=== PATIENT | male | born 1975 ===

== ENCOUNTER 2022-09-12 04:37 | Inpatient (IN) ==
[2022-09-12] MEDS ORDERED: ONDANSETRON INJ 2 MG/ML 2 ML VIAL IV PRN (09:49)
[2022-09-12] MEDS ORDERED: LACTATED RINGER'S 500 ML IV ONE (09:49)
--- NOTE | 2022-09-12 09:55 | History & Physical Report ---
Date of Service September 12, 2022 Assessment & Plan (1) Acute diverticulitis: Plan: Sigmoid diverticulitis on CT a/p from [facility]. No micro or macroperforation. No abscess formation. SBO reactive/secondary to the sigmoid diverticulitis? Separate process? Repeat CBC, BMP here are stable. Plan - * NPO * IVF * IV antibiotics - rocephin 2mg daily, flagyl 500mg IV q8h * IV pepcid for GI prophylaxis * IV pain meds - morphine prn Will consult [facility], Dr Shauna Mckay, for additional recommendations. When acute diverticulitis has resolved will need outpatient colonoscopy in 6-8 weeks to exclude other processes (colon ca, IBD, etc). (2) SBO (small bowel obstruction): Plan: Odd presentation in light of the sigmoid diverticulitis. I had the films from [facility] downloaded in our PACs system and independently reviewed these images with our radiology department. The loops of small bowel that are dilated (distal small intestine) are adjacent to the area of diverticulitis. More than likely the SBO is reactive/secondary to the diverticulitis. Can't exclude that the SBO is simply a severe ileus due to #1 but less likely. Patient without any vomiting/nausea and is passing flatus. Thus, defer on NG tube for now. Appreciate GI consult & recommendations. NPO, IV fluids, etc. Consider repeat plain films in am if any clinical worsening or lack of improvement. Low threshold for general surgery consultation if any worsening. Of note - patient had SBO in 02/2022 at [facility]. He has never had any intra-abdominal surgery. Could he have smoldering IBD leading to the SBO in 02/2022 and the SBO here? Will need outpatient colonoscopy in 6-8 weeks. Terminal ileum can be looked at during the colonoscopy to exclude Crohn's, etc. Consider stool calprotectin to screen for IBD due to chronic loose stools. Will request the records from [facility] 02/2022 admission. (3) Rotator cuff syndrome of right shoulder: Plan: Patient had a shoulder injury about 2 weeks ago. He had outpatient x-rays of the right shoulder at that time and was told his films did not show fracture. He has impingement signs on exam today. Could have shoulder bursitis due to his trauma/fall. Could have tendonitis. Voltaren gel qid. Ice qid prn. (4) Elevated C-reactive protein (CRP): Plan: Likely 2nd to #1 Plan DVT proph - low risk, ambulatory, defer on chemical DVT prophylaxis updated at bedside care d/w Dr Mckay, [facility] Admission and Anticipated Discharge Date Admission Date: September 12, 2022 History of Present Illness Chief Complaint: abdominal pain Primary Care Provider: NO PCP Pleasant 46yo male with history of SBO requiring hospitalization in 02/2022 at [facility], "colitis" 4-5 years ago (only seen in ER at that time, did not require hospitalization), and several other episodes of LLQ abdominal pain over the last several years not requiring medical care presenting as a transfer from [facility] for SBO + sigmoid diverticulitis. Patient states his lower abdominal pain (LLQ>suprapubic) started about 2 days ago. During that time period he has had little PO intake. +subjective fevers/chills. No vomiting, no nausea. Still passing flatus. No stool in the last 24 hours. He reports chronic loose stools without blood or mucous. No recent weight loss. Prior to the abdominal pain starting 2 days ago he had normal appetite. He has never had EGD or colonoscopy He remembers being told in [place] in 02/2022 that Crohn's may have caused his SBO? He does not recall being told he had colitis or diverticulitis during that hospitalization. He never had GI or surgical follow-up. There is a family history of colonoscopy in his mother in her 60s; from such. No IBD history in either side of his family. During my admission assessment he is uncomfortable due to LLQ abdominal pain. Allergies Allergy/AdvReac Type Severity Reaction Status Date / Time No Known Allergies Allergy Unverified 09/12/22 08:51 Home Medications Medication Instructions Recorded Confirmed Type No Known Home Medications 09/12/22 09/12/22 History Past Med/Surg History Medical History History of colitis SBO (small bowel obstruction) 02/2022 - [facility] Surgical History No pertinent past surgical history Family History Mother Colorectal cancer in her 60s Thyroid disease Sister , age 32 Leukemia Denies family history of Inflammatory bowel disease Social History Smoking Status: Former smoker Second Hand Exposure: No; Do You Dip or Chew Tobacco: No; Tobacco Cessation Education Requested by Patient: No Hx Alcohol Use: No Hx Substance Use: No Preferred Language: Uzbek Communication Ability: Effective Aviation Medicine Specialist Required: No Beliefs That Will Affect Care: None marital status: Current Living Situation: Spouse Current Living Situation Comment: lives with + 5 children current occupational status: employed 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) How many Children do You have: 5 Other Information That Helps Us Care for You: No Feels Safe at Home: Yes Safety Concerns: Feels Safe At This Time Assistive Devices: None Review of Systems Review of Systems: gen - fevers/chills (subjective) - yesterday; no recent weight loss; +loss of appetite last few days eyes - no changes in vision HENT - no ear pain, sore throat, URI symptoms CV - no chest pain pulm - no dyspnea or cough GI - no nausea/vomiting/blood per rectum/melena; +LLQ abd pain; chronic loose stools - no dysuria musculo - right shoulder pain s/p fall 2 weeks ago; had x-rays and was told they were negative for fracture skin - no rash endo - no diabetes neuro - headache x 2 days Physical Exam Physical Exam: gen - NAD, awake, alert, pleasant eyes - PERRL HENT - nose clear, mouth with dry MM, no lesions neck - no JVD, no lymph nodes CV - RRR, s1 s2, no murmur lungs - CTA b/l but BS decreased bases abd - tender upper quadrants but worst in the LLQ; no peritoneal signs; BS+; mi nimally distended rectal - deferred musculo - right shoulder with +impingement signs with external and internal rotation along with extension; +bursal pain to palpation; no deformity or atrophy of muscles ext - no edema, pulses 2+ b/l skin - no rash neuro - DTRs 2+ b/l upper/lower exts; strength 5/5 x 4 exts but mild weakness noted R shoulder due to pain psych - a/o x 3 Results & Data Results & Data Vital Signs (Past 12 Hours) Vital Signs Temp Pulse Resp BP Pulse Ox O2 Del Method 09/12/22 08:18 37.0 C 74 18 97/61 L 99 Room Air Laboratory Results Laboratory Results - last 24 hr 09/12/22 09/12/22 10:02 10:02 WBC 11.49 H RBC 4.22 L Hgb 13.0 L Hct 37.8 L MCV 89.6 MCH 30.8 MCHC 34.4 RDW Std Deviation 42.5 RDW Coeff of Tara 13.0 Plt Count 181 MPV 9.1 L Sodium 136 Potassium 4.3 Chloride 103 Carbon Dioxide 26 Anion Gap 7 BUN 11 Creatinine 0.85 Est Cr Clr Drug Dosing 114.5 Est GFR ( Amer) 122.8 Est GFR (Non-Af Amer) 106.0 BUN/Creatinine Ratio 12.9 Glucose 89 Calcium 8.3 L Magnesium 1.9 Labs at [facility] prior to transfer - WBC 12,000 Cr 0.9 CRP 30.9 ESR 56 Lipase 13 u/a - 2+ blood, 2+ ketones Diagnostic Findings Chest/Abdomen X-ray 09/12/22 09:49 CHEST AND ABDOMEN 2 VIEWS HISTORY: ? Small bowel obstruction on outside CT scan ([facility]) COMPARISON: Outside hospital abdomen and pelvis CT 09/11/2022. FINDINGS: No pneumothorax. No pleural effusions. The cardiac silhouette is normal in size. The right lung is clear. Left basilar linear densities favor subsegmental atelectasis. No pneumoperitoneum. No pneumatosis. Dilated gas- filled loops of small bowel are again seen within the abdomen most pronounced within the left upper quadrant. These measure up to 4.7 cm in diameter. This is consistent with the small bowel obstruction seen on the prior CT examination. There is gas seen within nondistended colon and rectum. Therefore, this could represent a partial small bowel obstruction at this time. Calcified granulomas again noted within the spleen. IMPRESSION: Dilated gas-filled loops of small bowel are again seen within the abdomen most pronounced within the left upper quadrant. These measure up to 4.7 cm in diameter. This is consistent with the small bowel obstruction seen on the prior CT examination. There is gas seen within nondistended colon and rectum. Therefore, this could represent a partial small bowel obstruction at this time. ACT 112: Negative or not required by law. Electronically signed by: Curt Benitez M.D. 09/12/2022 10:52 AM ----- CT abd/pelvis - performed at [facility] - 1. b/l simple renal cysts 2. GI tract - diverticulosis with mild inflammatory changes in the sigmoid colon compatible with diverticulitis. Short segment of dilated small bowel loops in the left hemiabdomen with transition point in the region of the sigmoid inflammation. 3. No free fluid or free air. Code Status & VTE Plan Code Status full code PG Care Time/CCT Total # of Minutes Spent Total Time Spent with Patient: Total time spent is greater than 50% in coordination of care (as documented) at patient's floor/unit and/or counseling patient: Coding Level of Care Code 09524 INT INP/OBS CARE 2MIN Diagnoses Acute diverticulitis K57.92 SBO (small bowel obstruction) K56.609 Rotator cuff syndrome of right shoulder M75.101 Elevated C-reactive protein (CRP) R79.82
[2022-09-12 10:32] LABS: Hematocrit (blood only) 37.8 % (42.0-52.0); Mean Corpuscular Hemoglobin 30.8 pg (25.0-34.0); Mean Corpuscular Hgb Conc 34.4 g/dL (32.0-36.0); Mean Corpuscular Volume 89.6 fL (80.0-100.0); Mean Platelet Volume 9.1 fL (9.4-12.4); Platelet Count 181 K/uL (130-400); RDW Standard Deviation 42.5 fL (36.4-46.3); Red Blood Count 4.22 M/uL (4.70-6.10); White Blood Count 11.49 K/ul (4.8-10.8)
[2022-09-12] MEDS: MoRPHine SULFATE 2 MG/ML CARP IV PRN ×2 (10:48→17:18)
[2022-09-12 10:51] LABS: BUN Creatinine Ratio 12.9 (10-20); Calcium 8.3 mg/dl (8.6-10.3); Creatinine Clr Calc Pharmacy 114.5 ml/min; Est GFR (African American) 122.8 ml/min; Magnesium 1.9 mg/dl (1.7-2.4); Potassium 4.3 mmol/L (3.5-5.1)
[2022-09-12] MEDS: FAMOTIDINE 20 MG in SYRINGE 3 ML IV SCH ×2 (10:52→20:32)
--- NOTE | 2022-09-12 10:53 | XRay Report ---
CHEST AND ABDOMEN 2 VIEWS HISTORY: ? Small bowel obstruction on outside CT scan ([facility]) COMPARISON: Outside hospital abdomen and pelvis CT 09/11/2022. FINDINGS: No pneumothorax. No pleural effusions. The cardiac silhouette is normal in size. The right lung is clear. Left basilar linear densities favor subsegmental atelectasis. No pneumoperitoneum. No pneumatosis. Dilated gas-filled loops of small bowel are again seen within the abdomen most pronounce d within the left upper quadrant. These measure up to 4.7 cm in diameter. This is consistent with the small bowel obstruction seen on the prior CT examination. There is gas seen within nondistended colo n and rectum. Therefore, this could represent a partial small bowel obstruction at this time. Calcifi ed granulomas again noted within the spleen. IMPRESSION: Dilated gas-filled loops of small bowel are again seen within the abdomen most pronounced within the left upper quadrant. These measure up to 4.7 cm in diameter. This is consistent with the small bowel obstruction seen on the prior CT examination. There is gas seen within nondistended colon and rectum. Therefore, this could represent a partial small bowel obstruction at this time. ACT 112: Negative or not required by law. Electronically signed by: Curt Benitez M.D. 09/12/2022 10:52 AM
[2022-09-12] MEDS: D5NSS + 20MEQ KCL 20 MEQ/1,000 ML BAG IV SCH ×2 (11:05→18:13)
--- NOTE | 2022-09-12 11:08 | Gastrointestinal Consultation ---
Date of Consultation September 12, 2022 Assessment & Plan (1) Acute diverticulitis: He has acute diverticulitis and should be treated as such with IV antibiotics. I am unclear why he would have a small bowel obstruction. I guess it is possible he has Crohn's but I prefer not to label him with two different issues. He does need evaluation after he gets over his diverticulitis with colonoscopy. As an outpatient small bowel imaging could be done as well. When colonoscopy is done inspection of the terminal ileum could be performed. History of Present Illness Reason for Consultation: diverticulitis Attending Physician: Mann Du MD History of Present Illness 46 year old man with two days of lower abdominal pain with fever coming into the picture yesterday. He was admitted with CT that suggests acute diverticulitis. He says he has had episodes like this in the past that he has self treated at home with "infection reducers". He has been in the hospital before for GI issues and told he had "colitis". On CT on this admission there is suggestion of small bowel obstruction that could be reactive to the inflammation in his colon. He says a week ago he was feeling normal. His bowel movements are chronically loose but he never sees blood in his stool. He has not been losing weight. he has not ever seen a stream control officer. Allergies Allergy/AdvReac Type Severity Reaction Status Date / Time No Known Allergies Allergy Unverified 09/12/22 08:51 Home Medications Medication Instructions Recorded Confirmed Type No Known Home Medications 09/12/22 09/12/22 History Patient History Medical History History of colitis SBO (small bowel obstruction) 02/2022 - [facility] Surgical History No pertinent past surgical history Family History Mother Colorectal cancer in her 60s Thyroid disease Sister , age 32 Leukemia Denies family history of Inflammatory bowel disease Social History Smoking Status: Former smoker Second Hand Exposure: No; Do You Dip or Chew Tobacco: No; Tobacco Cessation Education Requested by Patient: No Hx Alcohol Use: No Hx Substance Use: No Preferred Language: Citizen Of [place] Communication Ability: Effective Head Strength And Conditioning Coach Required: No Beliefs That Will Affect Care: None marital status: Current Living Situation: Spouse Current Living Situation Comment: lives with + 5 children current occupational status: employed 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) How many Children do You have: 5 Other Information That Helps Us Care for You: No Feels Safe at Home: Yes Safety Concerns: Feels Safe At This Time Assistive Devices: None Review of Systems Review of Systems: All systems reviewed & are unremarkable except as noted in HPI & below Physical Exam Constitutional: WD/WN, vitals as above no acute distress Eyes: PERRL, conjunctivae normal, anicteric sclerae ENMT: external ear and nose normal, oropharynx normal Neck: trachea midline, no thyromegaly Respiratory: normal respiratory effort, lungs clear to auscultation Cardiovascular: RRR, no murmur, no edema Gastrointestinal (Abdomen): Inspection/Auscultation: abdomen normal to inspection Percussion/Palpation: + abdomen tender (right and left lower abdomen) and abdomen soft; no hepatosplenomegaly Musculoskeletal: Extremities: no cyanosis and no clubbing Skin: no rashes, warm and dry Neurologic: PERRL, EOMI, accommodation nl, no face palsy, no dysarthria Psychiatric: Orientation: alert and oriented x 3 Results & Data Vital Signs (Past 12 Hours) Vital Signs Temp Pulse Resp BP Pulse Ox O2 Del Method 09/12/22 08:18 37.0 C 74 18 97/61 L 99 Room Air Laboratory Results 09/12/22 09/12/22 Range/Units 10:02 10:02 WBC 11.49 H (4.8-10.8) K/ul RBC 4.22 L (4.70-6.10) M/uL Hgb 13.0 L (14.0-18.0) g/dl Hct 37.8 L (42.0-52.0) % MCV 89.6 (80.0-100.0) fL MCH 30.8 (25.0-34.0) pg MCHC 34.4 (32.0-36.0) g/dL RDW Std Deviation 42.5 (36.4-46.3) fL RDW Coeff of Tara 13.0 (11.5-14.5) % Plt Count 181 (130-400) K/uL MPV 9.1 L (9.4-12.4) fL Sodium 136 (136-145) mmol/L Potassium 4.3 (3.5-5.1) mmol/L Chloride 103 (98-107) mmol/L Carbon Dioxide 26 (21-32) mmol/L Anion Gap 7 (3-11) BUN 11 (6-23) mg/dl Creatinine 0.85 (0.6-1.4) mg/dl Est Cr Clr Drug Dosing 114.5 ml/min Est GFR ( Amer) 122.8 ml/min Est GFR (Non-Af Amer) 106.0 ml/min BUN/Creatinine Ratio 12.9 (10-20) Glucose 89 (70-99(Fasting)) mg/dl Calcium 8.3 L (8.6-10.3) mg/dl Magnesium 1.9 (1.7-2.4) mg/dl Diagnostic Findings Chest/Abdomen X-ray 09/12/22 09:49 CHEST AND ABDOMEN 2 VIEWS HISTORY: ? Small bowel obstruction on outside CT scan ([facility]) COMPARISON: Outside hospital abdomen and pelvis CT 09/11/2022. FINDINGS: No pneumothorax. No pleural effusions. The cardiac silhouette is normal in size. The right lung is clear. Left basilar linear densities favor subsegmental atelectasis. No pneumoperitoneum. No pneumatosis. Dilated gas- filled loops of small bowel are again seen within the abdomen most pronounced within the left upper quadrant. These measure up to 4.7 cm in diameter. This is consistent with the small bowel obstruction seen on the prior CT examination. There is gas seen within nondistended colon and rectum. Therefore, this could represent a partial small bowel obstruction at this time. Calcified granulomas again noted within the spleen. IMPRESSION: Dilated gas-filled loops of small bowel are again seen within the abdomen most pronounced within the left upper quadrant. These measure up to 4.7 cm in diameter. This is consistent with the small bowel obstruction seen on the prior CT examination. There is gas seen within nondistended colon and rectum. Therefore, this could represent a partial small bowel obstruction at this time. ACT 112: Negative or not required by law. Electronically signed by: Curt Benitez M.D. 09/12/2022 10:52 AM
[2022-09-12] MEDS: cefTRIAXone SODIUM 2,000 MG in DEXTROSE 5% 50 ML IV SCH (11:11)
[2022-09-12] MEDS: metroNIDAZOLE 500 MG/100 ML BAG IV SCH ×2 (11:52→18:13)
[2022-09-12] MEDS ORDERED: MoRPHine SULFATE 2 MG/ML CARP IV PRN (17:36)
[2022-09-12] MEDS: DICLOFENAC SOD 1% GEL 100 GM TUBE EXT SCH (20:32)
[2022-09-13] MEDS: D5NSS + 20MEQ KCL 20 MEQ/1,000 ML BAG IV SCH ×3 (02:25→19:58)
[2022-09-13] MEDS: metroNIDAZOLE 500 MG/100 ML BAG IV SCH ×3 (02:26→18:34)
[2022-09-13 06:31] LABS: Basophils # (auto) 0.02 K/uL (0-0.2); Basophils % (auto) 0.2 %; Eosinophils # (auto) 0.11 K/uL (0-0.50); Eosinophils % (auto) 1.2 %; Hematocrit (blood only) 36.4 % (42.0-52.0); Hemoglobin 12.5 g/dl (14.0-18.0); Immature Granulocytes # (auto) 0.03 K/uL (0.01-0.20); Immature Granulocytes % (auto) 0.3 %; Lymphocytes # (auto) 1.46 K/uL (1.2-3.4); Lymphocytes % (auto) 16.3 %; Mean Corpuscular Hemoglobin 30.6 pg (25.0-34.0); Mean Corpuscular Hgb Conc 34.3 g/dL (32.0-36.0); Mean Corpuscular Volume 89.2 fL (80.0-100.0); Mean Platelet Volume 9.6 fL (9.4-12.4); Monocytes # (auto) 0.54 K/uL (0.11-0.59); Neutrophils # (auto) 6.79 K/uL (1.40-6.50); Platelet Count 201 K/uL (130-400); RDW Coefficient of Variation 13.1 % (11.5-14.5); RDW Standard Deviation 42.6 fL (36.4-46.3); Red Blood Count 4.08 M/uL (4.70-6.10); White Blood Count 8.95 K/ul (4.8-10.8)
[2022-09-13 06:43] LABS: BUN Creatinine Ratio 11.3 (10-20); Calcium 8.2 mg/dl (8.6-10.3); Creatinine Clr Calc Pharmacy 137.1 ml/min; Est GFR (African American) 132.3 ml/min; Est GFR (Non-African American) 114.1 ml/min; Potassium 4.1 mmol/L (3.5-5.1)
--- NOTE | 2022-09-13 06:54 | Gastroenterology Progress Note ---
Date of Service September 13, 2022 Assessment & Plan (1) Acute diverticulitis: Plan: Seems to be improving. Would continue antibiotics and perhaps repeat abdominal films tomorrow. Hopefully this SBO is related to his acute inflammation Admission and Anticipated Discharge Date Admission Date: September 12, 2022 Subjective Feeling better but not back to normal. Does not feel bloated or nauseated Physical Exam Physical Exam: He looks well Results & Data Vital Signs (Past 12 Hours) Vital Signs Temp Pulse Pulse Resp BP Pulse Ox O2 Del Method 09/13/22 04:11 36.9 C 75 18 102/67 95 Room Air 09/12/22 22:58 78 09/12/22 22:34 36.9 C 74 18 104/69 94 Room Air 09/12/22 20:44 36.9 C 79 18 94/55 L 94 Room Air
[2022-09-13] MEDS: cefTRIAXone SODIUM 2,000 MG in DEXTROSE 5% 50 ML IV SCH (09:21)
[2022-09-13] MEDS: FAMOTIDINE 20 MG in SYRINGE 3 ML IV SCH ×2 (09:21→19:59)
[2022-09-13] MEDS: DICLOFENAC SOD 1% GEL 100 GM TUBE EXT SCH ×4 (09:21→19:59)
--- NOTE | 2022-09-13 13:44 | Hospitalist Progress Note ---
Date of Service September 13, 2022 Assessment & Plan (1) Acute diverticulitis: Plan: CLINICALLY IMPROVED today. Sigmoid diverticulitis on CT a/p from [facility]. No micro or macroperforation. No abscess formation. SBO felt to be reactive/secondary to the sigmoid diverticulitis. Plan - * allow clears (I confirmed this with Dr Mckay - ok for clears) * lower IVF rate to 75cc/hr * repeat labs am * cont IV antibiotics - rocephin 2mg daily, flagyl 500mg IV q8h * IV pepcid for GI prophylaxis * IV pain meds - morphine prn, but none needed today Appreciate [facility] consult by Dr Shauna Mckay and his recommendations. When acute diverticulitis has resolved will need outpatient colonoscopy in 6-8 weeks to exclude other processes (colon ca, IBD, etc). (2) SBO (small bowel obstruction): Plan: Odd presentation in light of the sigmoid diverticulitis. I had the films from [facility] downloaded in our PACs system and independently reviewed these images with our radiology department. The loops of small bowel that are dilated (distal small intestine) are adjacent to the area of diverticulitis. More than likely the SBO is reactive/secondary to the diverticulitis. Can't exclude that the SBO is simply a severe ileus due to #1 but less likely. SBO IMPROVED today - passing flatus, 2 stools overnight & this am. Start clear liquid diet. Cont IV fluids. Cont walking in hallway. ------- Of note - patient had SBO in 02/2022 at [facility]. He has never had any intra-abdominal surgery. Could he have smoldering IBD leading to the SBO in 02/2022 and the SBO here? Will need outpatient colonoscopy in 6-8 weeks. Terminal ileum can be looked at during the colonoscopy to exclude Crohn's, etc. To be complete stool calprotectin to screen for IBD due to chronic loose stools was sent this am. Will request the records from [facility] [place] 02/2022 admission. (3) Rotator cuff syndrome of right shoulder: Plan: Patient had a shoulder injury about 2 weeks ago. He had outpatient x-rays of the right shoulder at that time and was told his films did not show fracture. He has impingement signs on exam. Pain improved with voltaren gel qid. Could have shoulder bursitis due to his trauma/fall. Could have tendonitis. f/u with PCP for this. If pain persists would potentially need subacromial bursal injection, MRI, etc (4) Elevated C-reactive protein (CRP): Plan: 2nd to #1 WBC count has normalized today Plan DVT proph - low risk, ambulatory, defer on chemical DVT prophylaxis updated at bedside once again gave handouts on diverticulosis/diverticulitis questions answered care d/w Dr Mckay, [facility] FAILED TO MENTION IN MY H/P YESTERDAY AT TIME OF ADMISSION THAT PT'S COVID 19 TEST AT [facility] JUST PRIOR TO TRANSFER WAS NEGATIVE Admission and Anticipated Discharge Date Admission Date: September 12, 2022 Subjective tele overnight wnl R shoulder is feeling better with voltaren gel his abdominal pain is MUCH improved; minimal LLQ pain no nausea no emesis 2 stools overnight & this am passing flatus he has not needed any morphine since last pm he has an appetite tolerating ice chips Review of Systems Review of Systems: gen - no fevers or chills cv - no chest pain pulm - no dyspnea GI - see HPI neuro - walking the hallways without difficulty Physical Exam Physical Exam: gen - NAD, awake, alert, pleasant - looks much better today mouth - MMM neck - no JVD CV - RRR, s1 s2, no murmur lungs - CTA b/l; decreased BS bases abd - soft, minimal distension, scant tenderness LLQ; no peritoneal signs; BS+ ext - no edema, pulses 2+ b/l psych - a/o x 3 Results & Data Results & Data Vital Signs (Past 12 Hours) Vital Signs Temp Pulse Pulse Resp BP Pulse Ox O2 Del Method 09/13/22 11:00 37.4 C 65 18 94/59 L 94 Room Air 09/13/22 07:15 76 07/02/23 07:00 36.8 C 73 18 103/65 95 Room Air 09/13/22 04:11 36.9 C 75 18 102/67 95 Room Air Laboratory Results Laboratory Results - last 24 hr 09/13/22 09/13/22 05:26 05:26 WBC 8.95 RBC 4.08 L Hgb 12.5 L Hct 36.4 L MCV 89.2 MCH 30.6 MCHC 34.3 RDW Std Deviation 42.6 RDW Coeff of Tara 13.1 Plt Count 201 MPV 9.6 Immature Gran % (Auto) 0.3 Neut % (Auto) 76.0 Lymph % (Auto) 16.3 [place] % (Auto) 6.0 Eos % (Auto) 1.2 Baso % (Auto) 0.2 Neut # (Auto) 6.79 H Lymph # (Auto) 1.46 [place] # (Auto) 0.54 Eos # (Auto) 0.11 Baso # (Auto) 0.02 Immature Gran # (Auto) 0.03 Sodium 137 Potassium 4.1 Chloride 105 Carbon Dioxide 26 Anion Gap 6 BUN 8 Creatinine 0.71 Est Cr Clr Drug Dosing 137.1 Est GFR ( Amer) 132.3 Est GFR (Non-Af Amer) 114.1 BUN/Creatinine Ratio 11.3 Glucose 126 H Calcium 8.2 L PG Care Time/CCT Total # of Minutes Spent Total Time Spent with Patient: Total time spent is greater than 50% in coordination of care (as documented) at patient's floor/unit and/or counseling patient: Coding Level of Care Code 15670 SUB INP/OBS CARE Diagnoses Acute diverticulitis K57.92 SBO (small bowel obstruction) K56.609 Rotator cuff syndrome of right shoulder M75.101 Elevated C-reactive protein (CRP) R79.82
[2022-09-13] MEDS ORDERED: ACETAMINOPHEN 1,000 MG/100 ML VIAL IV PRN (23:13)
[2022-09-13] MEDS ORDERED: MELATONIN 3 MG TAB PO PRN (23:14)
[2022-09-13] MEDS ORDERED: ACETAMINOPHEN 325 MG TAB PO PRN (23:15)
[2022-09-14] MEDS: metroNIDAZOLE 500 MG/100 ML BAG IV SCH ×3 (01:32→17:35)
[2022-09-14 06:37] LABS: Hematocrit (blood only) 36.5 % (42.0-52.0); Hemoglobin 12.4 g/dl (14.0-18.0); Mean Corpuscular Hemoglobin 30.6 pg (25.0-34.0); Mean Corpuscular Volume 90.1 fL (80.0-100.0); Mean Platelet Volume 9.4 fL (9.4-12.4); Platelet Count 218 K/uL (130-400); RDW Coefficient of Variation 12.9 % (11.5-14.5); RDW Standard Deviation 42.5 fL (36.4-46.3); Red Blood Count 4.05 M/uL (4.70-6.10); White Blood Count 7.91 K/ul (4.8-10.8)
[2022-09-14 06:42] LABS: BUN Creatinine Ratio 10.3 (10-20); Calcium 8.4 mg/dl (8.6-10.3); Creatinine Clr Calc Pharmacy 124.8 ml/min; Est GFR (African American) 127.2 ml/min; Est GFR (Non-African American) 109.8 ml/min; Magnesium 1.8 mg/dl (1.7-2.4); Potassium 4.3 mmol/L (3.5-5.1)
[2022-09-14] MEDS: FAMOTIDINE 20 MG in SYRINGE 3 ML IV SCH ×2 (08:21→20:51)
[2022-09-14] MEDS: DICLOFENAC SOD 1% GEL 100 GM TUBE EXT SCH ×4 (08:22→20:51)
[2022-09-14] MEDS: D5NSS + 20MEQ KCL 20 MEQ/1,000 ML BAG IV SCH ×2 (08:22→21:50)
--- NOTE | 2022-09-14 09:35 | Gastroenterology Progress Note ---
Supervising physician's note Cased discussed with Matilde Brian NP, chart reviewed, patient seen and examined with present Improving. Still some pain. WBC normal. Passing gas, having bowel movements PEx-a little distended in abdomen with some tympany I think he is improving and he is passing gas and having bowel movements. Will follow small bowel as he improves. Would consider switching to oral antibiotics in preparation for discharge I have spent 15 minutes on this visit including discussion with Matilde Brian, reviewing records, seeing patient, and inputting records into EMR Shauna Mckay Jr, MD, FAC Date of Service September 14, 2022 Assessment & Plan (1) Acute diverticulitis: Plan: Acute diverticulitis: Seems to be improving. Would continue antibiotics and supportive care measures. Recommend outpatient colonoscopy 6-8 weeks after completion of antibiotics. SBO: Patient with BM this morning and passing some flatus. Hopefully this SBO is related to his acute inflammation Case reviewed with Dr. Mckay. Please refer to supervising physician addendum for further recommendations. I have spent 15 minutes of discrete time performing the activities of this visit which include but are not limited to review of the medical record, obtaining a history, physical exam, and entering information in the electronic record. Admission and Anticipated Discharge Date Admission Date: September 12, 2022 Subjective patient awake, alert, and oriented sitting in position of comfort in bed. He reports he feels improved. He tolerated did clear liquid diet this morning. He continues to have some bilateral lower abdominal discomfort rating 3-4 nausea or vomiting. He does report a bowel movement this morning. He states it was liquid stool. He denies any melena or hematochezia. He has been walking in the hallways. Review of Systems Review of Systems: All systems reviewed & are unremarkable except as noted in Subjective Physical Exam Gastrointestinal (Abdomen): Inspection/Auscultation: abdomen normal to inspection and + abdomen distended Percussion/Palpation: + abdomen tender (bilateral lower abdomen), abdomen soft and + tympanic to percussion; no guarding and abdomen not rigid Results & Data Vital Signs (Past 12 Hours) Vital Signs Temp Pulse Pulse Resp BP Pulse Ox O2 Del Method 09/14/22 07:50 65 09/14/22 07:00 37.1 C 74 18 95/63 L 95 Room Air 09/13/22 23:00 72 09/14/22 02:34 36.6 C 66 18 93/58 L 94 Room Air 09/13/22 22:52 36.6 C 69 18 99/65 L 95 Room Air Laboratory Results Laboratory Results - last 24 hr 09/14/22 09/14/22 05:34 05:34 WBC 7.91 RBC 4.05 L Hgb 12.4 L Hct 36.5 L MCV 90.1 MCH 30.6 MCHC 34.0 RDW Std Deviation 42.5 RDW Coeff of Tara 12.9 Plt Count 218 MPV 9.4 Sodium 137 Potassium 4.3 Chloride 106 Carbon Dioxide 26 Anion Gap 5 BUN 8 Creatinine 0.78 Est Cr Clr Drug Dosing 124.8 Est GFR ( Amer) 127.2 Est GFR (Non-Af Amer) 109.8 BUN/Creatinine Ratio 10.3 Glucose 113 H Calcium 8.4 L Magnesium 1.8
[2022-09-14] MEDS: cefTRIAXone SODIUM 2,000 MG in DEXTROSE 5% 50 ML IV SCH (10:04)
--- NOTE | 2022-09-14 23:03 | Hospitalist Progress Note ---
Date of Service September 14, 2022 Assessment & Plan (1) Acute diverticulitis: Plan: CLINICALLY IMPROVED today. Sigmoid diverticulitis on CT a/p from [facility]. No micro or macroperforation. No abscess formation. SBO felt to be reactive/secondary to the sigmoid diverticulitis. Plan - * allow clears (I confirmed this with Dr Mckay - ok for clears) * lower IVF rate to 75cc/hr * repeat labs am * cont IV antibiotics - rocephin 2mg daily, flagyl 500mg IV q8h * IV pepcid for GI prophylaxis * IV pain meds - morphine prn, but none needed today Appreciate [facility] consult by Dr Shauna Mckay and his recommendations. When acute diverticulitis has resolved will need outpatient colonoscopy in 6-8 weeks to exclude other processes (colon ca, IBD, etc). Plan to advance diet in the AM. (2) SBO (small bowel obstruction): Plan: Odd presentation in light of the sigmoid diverticulitis. I had the films from [facility] downloaded in our PACs system and independently reviewed these images with our radiology department. The loops of small bowel that are dilated (distal small intestine) are adjacent to the area of diverticulitis. More than likely the SBO is reactive/secondary to the diverticulitis. Can't exclude that the SBO is simply a severe ileus due to #1 but less likely. SBO IMPROVED today - passing flatus, 2 stools overnight & this am. Start clear liquid diet. Cont IV fluids. Cont walking in hallway. ------- Of note - patient had SBO in 02/2022 at [facility]. He has never had any intra-abdominal surgery. Could he have smoldering IBD leading to the SBO in 02/2022 and the SBO here? Will need outpatient colonoscopy in 6-8 weeks. Terminal ileum can be looked at during the colonoscopy to exclude Crohn's, etc. To be complete stool calprotectin to screen for IBD due to chronic loose stools was sent this am. Will request the records from [facility] 02/2022 admission. (3) Rotator cuff syndrome of right shoulder: Plan: Patient had a shoulder injury about 2 weeks ago. He had outpatient x-rays of the right shoulder at that time and was told his films did not show fracture. He has impingement signs on exam. Pain improved with voltaren gel qid. Could have shoulder bursitis due to his trauma/fall. Could have tendonitis. f/u with PCP for this. If pain persists would potentially need subacromial bursal injection, MRI, etc (4) Elevated C-reactive protein (CRP): Plan: 2nd to #1 WBC count has normalized today Plan DVT proph - low risk, ambulatory, defer on chemical DVT prophylaxis updated at bedside once again gave handouts on diverticulosis/diverticulitis questions answered care d/w Dr Mckay, [facility] Admission and Anticipated Discharge Date Admission Date: September 12, 2022 Subjective Patient is tolerating his diet and would like to advance it further in the morning. Review of Systems Review of Systems: Physical Exam Physical Exam: gen - no fevers or chills cv - no chest pain pulm - no dyspnea GI - soft, nontender neuro - walking the hallways without difficulty Results & Data Results & Data Vital Signs (Past 12 Hours) Vital Signs Temp Pulse Pulse Resp BP Pulse Ox O2 Del Method 09/14/22 21:00 Room Air 09/14/22 19:44 37.1 C 60 18 92/56 L 96 Room Air 09/14/22 15:19 36.7 C 64 18 107/70 64 L Room Air 09/14/22 15:08 83 09/14/22 15:07 65 PG Care Time/CCT Total # of Minutes Spent Total Time Spent with Patient: Total time spent is greater than 50% in coordination of care (as documented) at patient's floor/unit and/or counseling patient: Coding Level of Care Code 36435 SUB INP/OBS CARE 2/35MIN Diagnoses Acute diverticulitis K57.92 SBO (small bowel obstruction) K56.609 Rotator cuff syndrome of right shoulder M75.101 Elevated C-reactive protein (CRP) R79.82
[2022-09-15] MEDS: metroNIDAZOLE 500 MG/100 ML BAG IV SCH ×2 (02:40→12:57)
[2022-09-15 06:31] LABS: Hematocrit (blood only) 36.6 % (42.0-52.0); Hemoglobin 12.6 g/dl (14.0-18.0); Mean Corpuscular Hemoglobin 30.2 pg (25.0-34.0); Mean Corpuscular Hgb Conc 34.4 g/dL (32.0-36.0); Mean Corpuscular Volume 87.8 fL (80.0-100.0); Mean Platelet Volume 9.2 fL (9.4-12.4); Platelet Count 259 K/uL (130-400); RDW Coefficient of Variation 12.6 % (11.5-14.5); RDW Standard Deviation 40.7 fL (36.4-46.3); Red Blood Count 4.17 M/uL (4.70-6.10); White Blood Count 8.96 K/ul (4.8-10.8)
[2022-09-15 06:50] LABS: BUN Creatinine Ratio 9.9 (10-20); Calcium 8.5 mg/dl (8.6-10.3); Creatinine Clr Calc Pharmacy 120.2 ml/min; Est GFR (African American) 125.3 ml/min; Est GFR (Non-African American) 108.1 ml/min; Potassium 4.2 mmol/L (3.5-5.1)
[2022-09-15] MEDS: FAMOTIDINE 20 MG in SYRINGE 3 ML IV SCH (10:00)
--- NOTE | 2022-09-15 10:22 | Gastroenterology Progress Note ---
Date of Service September 15, 2022 Assessment & Plan (1) Acute diverticulitis: Plan: He is doing well. I would advance to low residue diet and it would be okay with me to discharge today if tolerated but he needs to take at least 7 days of antibiotics. Needs to follow up with GI as well for colonoscopy and to address SBO if still an issue Admission and Anticipated Discharge Date Admission Date: September 12, 2022 Subjective Feeling well. Back to normal Physical Exam Physical Exam: He looks well. Results & Data Vital Signs (Past 12 Hours) Vital Signs Temp Pulse Pulse Resp BP Pulse Ox O2 Del Method 09/15/22 07:48 36.6 C 58 L 16 99/65 L 95 Room Air 09/15/22 07:36 58 L 09/15/22 03:28 37.0 C 72 18 106/70 96 Room Air 09/14/22 23:10 37.1 C 65 18 93/56 L 94 Room Air
[2022-09-15] MEDS: cefTRIAXone SODIUM 2,000 MG in DEXTROSE 5% 50 ML IV SCH (10:52)
[2022-09-15] MEDS: DICLOFENAC SOD 1% GEL 100 GM TUBE EXT SCH ×2 (10:52→12:02)
[2022-09-15] MEDS: D5NSS + 20MEQ KCL 20 MEQ/1,000 ML BAG IV SCH (11:20)
[2022-09-15] MEDS ORDERED: metroNIDAZOLE 500 MG TAB PO STA (12:45)
--- NOTE | 2022-09-15 12:59 | Discharge Summary ---
Date of Service September 15, 2022 Admission HPI Per Admitting Provider Pleasant 46yo male with history of SBO requiring hospitalization in 02/[address] [facility], "colitis" 4-5 years ago (only seen in ER at that time, did not require hospitalization), and several other episodes of LLQ abdominal pain over the last several years not requiring medical care presenting as a transfer from [facility] for SBO + sigmoid diverticulitis. Patient states his lower abdominal pain (LLQ>suprapubic) started about 2 days ago. During that time period he has had little PO intake. +subjective fevers/chills. No vomiting, no nausea. Still passing flatus. No stool in the last 24 hours. He reports chronic loose stools without blood or mucous. No recent weight loss. Prior to the abdominal pain starting 2 days ago he had normal appetite. He has never had EGD or colonoscopy He remembers being told in [place] in 02/2022 that Crohn's may have caused his SBO? He does not recall being told he had colitis or diverticulitis during that hospitalization. He never had GI or surgical follow-up. There is a family history of colonoscopy in his mother in her 60s; from such. No IBD history in either side of his family. During my admission assessment he is uncomfortable due to LLQ abdominal pain. Principal Diagnosis Acute diverticulitis. Discharge Exam gen - no fevers or chills cv - no chest pain pulm - no dyspnea GI - soft, nontender neuro - walking the hallways without difficulty Discharge Data Allergies Allergy/AdvReac Type Severity Reaction Status Date / Time No Known Allergies Allergy Unverified 09/12/22 08:51 Consultations 09/12/22 10:37 Consult Gastroenterology Routine Hospital Course (1) Acute diverticulitis: CLINICALLY IMPROVED today. Sigmoid diverticulitis on CT a/p from [facility]. No micro or macroperforation. No abscess formation. SBO felt to be reactive/secondary to the sigmoid diverticulitis. The SBO resolved and patient was passing gas and having bowel movements. Plan (inhouse)- * On IV antibiotics - rocephin 2mg daily, flagyl 500mg IV q8h * IV pepcid for GI prophylaxis * IV pain meds - morphine prn Appreciate [facility] consult by Dr Shauna Mckay and his recommendations. When acute diverticulitis has resolved will need outpatient colonoscopy in 6-8 weeks to exclude other processes (colon ca, IBD, etc). Patient tolerated and will be discharged on a low fiber diet and he can be discharged on augmentin for an additional 7 days. (2) SBO (small bowel obstruction): Odd presentation in light of the sigmoid diverticulitis. I had the films from [facility] downloaded in our PACs system and independently reviewed these images with our radiology department. The loops of small bowel that are dilated (distal small intestine) are adjacent to the area of diverticulitis. More than likely the SBO is reactive/secondary to the diverticulitis. Can't exclude that the SBO is simply a severe ileus due to #1 but less likely. SBO IMPROVED today - passing flatus, 2 stools overnight & this am. Start clear liquid diet. Cont IV fluids. Cont walking in hallway. ------- Of note - patient had SBO in 02/[address] [facility]. He has never had any intra-abdominal surgery. Could he have smoldering IBD leading to the SBO in 02/2022 and the SBO here? Will need outpatient colonoscopy in 6-8 weeks. Terminal ileum can be looked at during the colonoscopy to exclude Crohn's, etc. To be complete stool calprotectin to screen for IBD due to chronic loose stools was sent this am. Will request the records from [facility] 02/2022 admission. (3) Rotator cuff syndrome of right shoulder: Patient had a shoulder injury about 2 weeks ago. He had outpatient x-rays of the right shoulder at that time and was told his elvis ms did not show fracture. He has impingement signs on exam. Pain improved with voltaren gel qid. Could have shoulder bursitis due to his trauma/fall. Could have tendonitis. f/u with PCP for this. If pain persists would potentially need subacromial bursal injection, MRI, etc (4) Elevated C-reactive protein (CRP): 2nd to #1 WBC count has normalized today Plan gave handouts on diverticulosis/diverticulitis questions answered Total Time Total Time Spent Total Time Spent (In Minutes): 35 Discharge Plan Discharge Items Patient Disposition: Home - Self-Care Reason For Visit: BOWEL OBSTRUCTION Discharge Diagnosis: Bowel obstruction Activity: Resume your previous activity Non-emergency contact: Primary Care Provider Call non-emergency contact if: you have any medication questions Follow-up/Referrals: PCP,NO [Primary Care Provider] - Diet: Low Fiber Addtl Attending Provider Instructions: Continue antibiotics until you are done with your scripts. Your next dose will be tonight. Take it on a full stomach for better tolerance. Tip for not forgetting as you normally do not take medications: placing alarm on phone to remind you of taking antibiotics. A low fiber diet is typically recommended for individuals with certain medical conditions or as a temporary measure to relieve digestive symptoms. Here is some basic information about a low fiber diet: 1. Purpose: A low fiber diet limits the intake of foods high in dietary fiber to reduce the workload on the digestive system and ease symptoms like diarrhea, abdominal pain, or cramping. 2. Foods to limit or avoid: - Whole grains (e.g., whole wheat, whole oats, brown rice) - Legumes (e.g., lentils, beans, chickpeas) - Nuts and seeds - Raw fruits and vegetables (except for some cooked or peeled options) - High-fiber cereals or breads 3. Foods generally allowed: - Refined grains (e.g., white bread, white rice, refined cereals) - Cooked and peeled fruits and vegetables (e.g., applesauce, canned fruits, cooked carrots) - Lean meats, poultry, and fish - Dairy products (unless lactose intolerant) - Eggs 4. Cooking and preparation methods: - Choose peeled or cooked fruits and vegetables instead of raw ones. - Remove seeds and skin from fruits and vegetables. - Opt for refined grain products instead of whole grains. - Cook or soak legumes to reduce their fiber content. It's important to note that a low fiber diet should only be followed under the guidance of a healthcare professional, as it is not suitable for long-term use. They can provide personalized recommendations based on your specific needs and condition. Followup with PCP in 1 week. Followup with GI within 1 month, unless they schedule you a litte farther out. Pending Studies at Discharge: No Stand-Alone Forms: My [facility], Smoking Cessation Medications and DC Order Prescriptions: New amoxicillin-pot clavulanate 875-125 mg tablet 1 tab PO BID Qty: 15 0RF Discharge Orders: Discharge Order (Routine); Ordered 09/15/22 Ordered By: James Lang Admission Data Admit Date/Time: 09/12/22 09:49 Attending Provider: James Lang Admit Provider: Bonita Morris Primary Care Provider: PCP,NO Other Providers: Shauna Mckay Jr Other Interventions: Discharge Summary Assessment (RN) Last Done: 09/15/22 14:11 Coding Level of Care Code 27981 INP/OBS DISCH >30 MIN Diagnoses Acute diverticulitis K57.92 SBO (small bowel obstruction) K56.609 Rotator cuff syndrome of right shoulder M75.101 Elevated C-reactive protein (CRP) R79.82
== END 2022-09-15 14:51 | disposition home or self-care (01) | DRG 392 ==
LOC: SUATTDRO 07:53 → 2N 07:53
DX: R79.82 Elevated C-reactive protein (CRP); Z87.891 Personal history of nicotine dependence; M75.101 Unspecified rotator cuff tear or rupture of right shoulder, not specified as traumatic; K56.609 Unspecified intestinal obstruction, unspecified as to partial versus complete obstruction; K57.32 Diverticulitis of large intestine without perforation or abscess without bleeding